=== PATIENT | male | born 1985 | race Two or more races ===

== ENCOUNTER 2024-02-09 13:50 | Emergency (ER) | payer OTHER ==
[~2024-02-09] VITALS: Ht 180.3 cm; Wt 72.6 kg
[2024-02-09] MEDS ORDERED: ACET500T58 PO (16:26)
[2024-02-09] MEDS ORDERED: IBUP-1455 PO (16:26)
[2024-02-09] MEDS: KETOROLAC TROMETH 60MG/2ML VIAL IM ONE (17:14)
[2024-02-09 17:22] VITALS: BP 123/73; PULSE 91; RESP 17; TEMP 97.7; O2SAT 97
== END 2024-02-09 17:25 | disposition home or self-care (01) ==
LOC: ER 13:50
DX: S90.31XA Contusion of right foot, initial encounter (principal); X58.XXXA Exposure to other specified factors, initial encounter; Y93.89 Activity, other specified; Y92.89 Other specified places as the place of occurrence of the external cause; Y99.8 Other external cause status
CPT/HCPCS: 73630; 96372; 99283; J1885

== ENCOUNTER 2024-05-24 21:51 | Emergency (ER) | payer MEDICAID ==
[~2024-05-24] VITALS: Ht 182.9 cm; Wt 72.0 kg
[~2024-05-24 21:51] MED LIST: ACET500T58 PO; IBUP-1455 PO
[2024-05-24 22:24] VITALS: BP 100/62; PULSE 58; RESP 18; O2SAT 98
[2024-05-24] MEDS ORDERED: SODIUM CHLORIDE 0.9% 1,000 ML IV ONE (23:15)
== END 2024-05-24 23:38 | disposition left against medical advice (07) ==
LOC: ER 21:51
DX: R55 Syncope and collapse (principal); R11.2 Nausea with vomiting, unspecified; Z79.899 Other long term (current) drug therapy

== ENCOUNTER 2025-01-26 18:35 | Emergency (ER) | payer MEDICAID ==
[~2025-01-26] VITALS: Ht 180.3 cm; Wt 69.8 kg
[2025-01-26 19:33] VITALS: BP 109/68; PULSE 92; RESP 19; TEMP 98; O2SAT 96
--- NOTE | 2025-01-26 19:36 | ED.PDOC ---
Eye-HPI Chief Complaint: Face pain Time Seen by MD: 18:42 Primary Care Provider: MORIAH Porras Notes: Nurses Notes, Printing Roller Polisher Notes, Medications, Allergies Allergies: Coded Allergies: NO KNOWN ALLERGIES (Unverified , 02/09/24) Home Meds Active Scripts Acyclovir (ZOVIRAX TABLET) 400 Mg Tb, 1 TAB PO TID for 5 Days, #15 TAB Prov:PEDRO ANAND VARNISH THINNER 01/26/25 Ibuprofen Micronized (Ibuprofen) 800 Mg Tab, 800 MG PO Q8HP PRN, #20 TAB Prov:TA WRIGHT PAC 02/09/24 Acetaminophen (Acetaminophen) 500 Mg Tab, 500 MG PO Q4HP PRN, #30 TAB Prov:TA WRIGHT PAC 02/09/24 Information Source: Patient Mode of Arrival: Ambulatory Past Medical History Surgical History: Denies all surgeries Family History Family History: Reviewed,noncontributory to illness, No family hx of Cancer, No family hx of DM, No family hx of Heart robert, No family hx of HTN, No family hx ofKidney robert, No family hx of Liver robert, No family hx of Lung robert, No family hx of Stroke Social History Smoker: Non-Smoker Alcohol: Denies ETOH Use Drugs: Denies Drug Use Lives In: Home Physical Exam General Appearance: No Apparent Distress, Normal HEENT: Pharynx Normal, Other (Noted several herpetic lesions on bottom inside lip) Neck: Full Range of Motion, Non-Tender Respiratory: Lungs Clear, No Respiratory Distress, Normal Breath Sounds Cardiovascular: No Murmur, Normal Peripheral Pulses, Regular Rate/Rhythm Breast Exam: Deferred Gastrointestinal: Non Tender, Soft Genitalia: Deferred Pelvic: Deferred Rectal: Deferred Extremities: Normal capillary refill, Normal inspection, Normal range of motion, Non-tender, No pedal edema Musculoskeletal : Apperance: Normal Neurologic: Alert, bowl topper II-XII nml as Tested, No Motor Deficits, Normal Affect, Normal Mood, No Sensory Deficits Cerebellar Function: Normal Reflexes: Normal Skin: Dry, Normal Color, Warm Lymphatic: No Adenopathy Was a procedure done? Was a procedure done?: No EENT DIFF Eye: N/A Mouth: Esophageal candidiasis, Herpangina, Herpes Simplex, Immunodeficiency, Thrush X-Ray, Labs, Meds, VS Vital Signs Date Time Temp Pulse Resp B/P (MAP) Pulse Ox O2 Delivery O2 Flow Rate FiO2 01/26/25 19:33 92 19 96 Room Air 01/26/25 19:33 98.0 92 19 109/68 (82) 96 98.0 01/26/25 18:48 98.6 88 18 105/75 (85) 98 98.6 Current Medications Medications (Trade) Dose Ordered Sig/Breanne Route Start Time Stop Time Status Last Admin Acyclovir (Zovirax Tablet) 400 mg ONCE ONCE PO 01/26/25 19:45 01/26/25 19:46 DC 01/26/25 20:00 X-Ray, Labs, Meds, VS Comment Herpetic likely cold sore trial acyclovir 1 dose given now script sent to pharmacy on file. Advised to take medications as prescribed side effects discussed follow up with your PCP in 1-2 days ER return precautions given patient indicated understanding agrees with discharge plan of care. Time of 1ST Reevaluation: 19:37 Reevaluation 1ST: Unchanged Patient Education/Counseling: Diagnosis, Treatment, Prognosis, Need For Follow Up Family Education/Counseling: No Family Present Departure 1 Departure Time of Disposition: 19:37 Impression: Primary Impression: HSV-1 (herpes simplex virus 1) infection Disposition: 01 HOME / SELF CARE / HOMELESS Condition: Stable e-Prescriptions Acyclovir (ZOVIRAX TABLET) 400 Mg Tb 1 TAB PO TID for 5 Days, #15 TAB Prov: PEDRO ANAND 01/26/25 Discharged With: Self Critical Care Note Critical Care Time?: No Stability Stability form required: No PEDRO ANAND Jan 26, 2025 19:36
[2025-01-26] MEDS ORDERED: ACYC400T16 PO (19:41)
[2025-01-26] MEDS: ACYCLOVIR 400 MG TAB PO ONE (20:00)
== END 2025-01-26 20:09 | disposition home or self-care (01) ==
LOC: ER 18:35
DX: B00.9 Herpesviral infection, unspecified (principal); Z79.624 Long term (current) use of inhibitors of nucleotide synthesis

== ENCOUNTER 2025-08-13 20:34 | Emergency (ER) | payer MEDICAID ==
[~2025-08-13] VITALS: Ht 180.3 cm; Wt 71.4 kg
[2025-08-13 23:13] LABS: COVID19 ANTIGEN SOFIA FIA NEGATIVE (NEGATIVE)
[2025-08-14] MEDS ORDERED: AMOX875T4 PO (00:09)
[2025-08-14] MEDS ORDERED: IBUP-1456 PO (00:09)
--- NOTE | 2025-08-14 00:10 | ED.PDOC ---
History of Present Illness HPI Comments 40-year-old male presents to ER with complaints of flu-like symptoms x1 day. Patient with PMH significant for schizophrenia and insomnia reports that he has been experiencing body aches, sore throat and nasal congestion x1 day. He rates his current pain a 9/10 and denies use of medications for current symptoms. Patient also reports that he ran out of his Zyprexa 10 mg QD and Trazadone 50 mg that he takes once nightly 1 month ago and is requesting medication refill of these medications in ER. He denies any hallucinations, SI/HI and presents to ER ambulatory on arrival, alert and oriented x 4 in no distress with vitals stable. Patient endorses no further symptoms/complaints Chief Complaint: Body Pain Time Seen by MD: 21:53 Primary Care Provider: MORIAH Porras Notes: Nurses Notes, Medications, Allergies Information Source: Patient Mode of Arrival: Ambulatory Past Medical History PAST MEDICAL HISTORY: Schizophrenia Past Medical History (Other): Insomnia Surgical History: Denies all surgeries Family History Family History: Unknown Social History Smoker: Non-Smoker Alcohol: Denies ETOH Use Drugs: Denies Drug Use Lives In: Home Constitutional: See HPI EENTM: See HPI Respiratory: No Symptoms Reported Cardiovascular: No Symptoms Reported Gastrointestinal: No Symptoms Reported Genitourinary: No Symptoms Reported Neurological: No Symptoms Reported Musculoskeletal: No Symptoms Reported Integumentary: No Symptoms Reported Allergic/Immunocompromised: others (Denies) Hematologic/Lymphatic: No Symptoms Reported Endocrine: No Symptoms Reported Psychiatric: Other (As stated in HPI) Physical Exam General Appearance: No Apparent Distress HEENT: PERRL/EOMI, Pharyngeal Erythema (Erythematous pharynx with mild tonsillar swelling/erythema noted, no exudates noted. Uvula-normal), TMs Normal Neck: Full Range of Motion, Non-Tender, Normal Respiratory: Chest Non-Tender, Lungs Clear, No Accessory Muscle Use, No Respiratory Distress, Normal Breath Sounds Cardiovascular: No Murmur, No Gallop, Regular Rate/Rhythm Breast Exam: Deferred Gastrointestinal: NOT DONE Genitalia: Deferred Pelvic: Deferred Rectal: Deferred Extremities: Normal capillary refill, Normal range of motion Neurologic: Alert, psychologist engineering II-XII nml as Tested, No Motor Deficits, Normal Affect, Normal Mood, No Sensory Deficits Cerebellar Function: Normal Reflexes: Normal Skin: Dry, Normal Color, Warm Peripheral Pulses: 2+ Radial (R), 2+ Radial (L), 2+ Brachial (R), 2+ Brachial (L) Lymphatic: No Adenopathy Was a procedure done? Was a procedure done?: No Sedation Sedation?: No Fever Differential Dx Differential Diagnosis: Pneumonia, Sepsis, Other (COVID-19, INLFUENZA) X-Ray, Labs, Meds, VS Vital Signs Date Time Temp Pulse Resp B/P (MAP) Pulse Ox O2 Delivery O2 Flow Rate FiO2 08/14/25 00:26 98.2 82 17 102/57 (72) 97 98.2 08/14/25 00:20 97 Room Air* 0 21 08/13/25 20:37 98.1 86 20 104/77 97 98.1 Lab Test 08/13/25 22:34 Range/Units Urine Color Yellow Yellow Urine Clarity Turbid H Clear Urine pH 8.0 5.0-9.0 Urine Specific [place] 1.028 1.001-1.035 Urine Protein Trace H Negative Urine Ketones Negative Negative Urine Blood Negative Negative /uL Urine Nitrite Negative Negative Urine Bilirubin Negative Negative Urine Urobilinogen 12 H Negative mg/dL Urine Leukocyte Esterase Negative Negative /uL Urine RBC None seen 0 - 3 /hpf Urine Microscopic WBC < 1 0-3 /HPF Urine Squamous Epithelial Cells None seen <5 /hpf Urine Amorphous Crystals Few None Seen /hpf Urine Bacteria None seen None Seen /hpf Urine Glucose Normal Normal mg/dL Influenza Type A Antigen Negative Negative Influenza Type B Antigen Negative Negative SARS-CoV-2 Antigen (Rapid) Negative NEGATIVE Current Medications Medications (Trade) Dose Ordered Sig/Breanne Route Start Time Stop Time Status Last Admin Trazodone HCl (Desyrel) 50 mg ONCE ONCE PO 08/14/25 00:15 08/14/25 00:16 DC 08/14/25 00:32 Ibuprofen (Motrin Tablet) 800 mg ONCE ONCE PO 08/14/25 00:15 08/14/25 00:16 DC 08/14/25 00:32 Olanzapine (ZyPREXA Tablet) 10 mg ONCE ONCE PO 08/14/25 00:15 08/14/25 00:16 DC 08/14/25 00:32 Swab results reviewed-negative Urinalysis reviewed without any significant abnormalities Trazodone 50 mg p.o. ordered Zyprexa 10 mg p.o. ordered Ibuprofen 800 mg p.o. ordered Patient had improvement in symptoms, no acute psychosis Patient educated on importance of medication adherence Advised to follow up with PCP and Psychiatry in 1-2 days Patient alert and oriented x4 prior to discharge. Patient verbalized understanding and agreeable with current plan of care Advised to return to ER immediately if symptoms worsen Time of 1ST Reevaluation: 23:40 Reevaluation 1ST: N/A Patient Education/Counseling: Diagnosis, Treatment, Prognosis, Need For Follow Up Family Education/Counseling: No Family Present SEPSIS Sepsis Screen Date sepsis recognized/suspect: Aug 13, 2025 Time Sepsis recognized/suspect: 2038 Recent Procedure: No On Antibiotic Therapy: No Respiratory Rate >20: No Heart Rate >90: No Temp<36 C (96.8 F) or >38.3 C: No SBP <90 or MAP <65 mmHG: No New Acute Mental Status Change: No Is the patient on CPAP, BIPAP,: No Vital Signs Date Time Temp Pulse Resp B/P (MAP) Pulse Ox O2 Delivery O2 Flow Rate FiO2 08/14/25 00:26 98.2 82 17 102/57 (72) 97 98.2 08/14/25 00:20 97 Room Air* 0 21 08/13/25 20:37 98.1 86 20 104/77 97 98.1 Medications Medications Dose Ordered Sig/Breanne Route Start Time Stop Time Status Last Admin Dose Admin Ibuprofen 800 mg ONCE ONCE PO 08/14/25 00:15 08/14/25 00:16 DC 08/14/25 00:32 Olanzapine 10 mg ONCE ONCE PO 08/14/25 00:15 08/14/25 00:16 DC 08/14/25 00:32 Trazodone HCl 50 mg ONCE ONCE PO 08/14/25 00:15 08/14/25 00:16 DC 08/14/25 00:32 Departure 1 Departure Time of Disposition: 00:04 Impression: Primary Impression: Pharyngitis Qualified Codes: J02.9 - Acute pharyngitis, unspecified Additional Impressions: Hx of schizophrenia Hx of insomnia Disposition: 01 HOME / SELF CARE / HOMELESS Condition: Stable e-Prescriptions Trazodone HCl (Trazodone Hydrochloride) 50 Mg Tab 50 MG PO HS, #7 TAB 0 Refills Prov: CHRISTIN ROGERS 08/14/25 Olanzapine (Zyprexa) 10 Mg Tab 10 MG PO DAILY, #7 TAB 0 Refills Prov: CHRISTIN ROGERS 08/14/25 Ibuprofen (Ibuprofen) 800 Mg Tab 1 TAB PO TID PRN, #30 TAB 0 Refills Prov: CHRISTIN ROGERS 08/14/25 Amoxicillin & Pot Clavulanate (Amoxicillin/Potassium Cla) 875 Mg Tab 1 TAB PO BID for 7 Days, #14 TAB 0 Refills Prov: CHRISTIN ROGERS 08/14/25 Discharged With: Friend Critical Care Note Critical Care Time?: No Stability Stability form required: No Heart Score Heart Score: Heart Score Response (Comments) Value History N/A 0 EKG N/A 0 Age N/A 0 Risk Factors N/A 0 Troponin N/A 0 Total 0 CHRISTIN ROGERS Aug 14, 2025 00:10
[2025-08-14] MEDS ORDERED: OLAN10TA PO (00:16)
[2025-08-14] MEDS ORDERED: TRAZ-181 PO (00:16)
[2025-08-14 00:20] VITALS: O2SAT 97
[2025-08-14 00:26] VITALS: BP 102/57; PULSE 82; RESP 17; TEMP 98.2; O2SAT 97
[2025-08-14] MEDS: OLANZapine 5 MG TAB PO ONE (00:32)
[2025-08-14] MEDS: IBUPROFEN 800 MG TAB PO ONE (00:32)
[2025-08-14 00:46] LABS: Urine Amorphous Crystal FEW /hpf (None Seen); Urine Protein, UAD TRACE (Negative)
== END 2025-08-14 01:13 | disposition home or self-care (01) ==
LOC: ER 20:34
DX: J02.9 Acute pharyngitis, unspecified (principal); F20.9 Schizophrenia, unspecified; Z20.822 Contact with and (suspected) exposure to COVID-19
CPT/HCPCS: 36415; 81001; 87426; 87804